=== PATIENT | female | born 1960 | race Two or more races ===

== ENCOUNTER 2020-11-15 11:17 | Outpatient (CLI) | payer OTHER | END 2020-11-15 11:33 | disposition home or self-care (01) | LOC: RAD 11:17 | PROVIDERS: ATTEND Orthopaedic Surgery | DX: M16.12 Unilateral primary osteoarthritis, left hip (principal); Z76.89 Persons encountering health services in other specified circumstances ==

== ENCOUNTER 2021-03-02 16:56 | Emergency (ER) | payer OTHER ==
[~2021-03-02] VITALS: Ht 165.1 cm; Wt 55.8 kg
[2021-03-02] MEDS ORDERED: COZAAR25 MG (17:26)
[2021-03-02] MEDS ORDERED: ZETIA10 MG (17:26)
[2021-03-02] MEDS ORDERED: CRESTOR10 MG (17:26)
[2021-03-02] MEDS ORDERED: IBU800 MG PO (21:32)
[2021-03-02] MEDS ORDERED: NORFLEX100MG PO (21:32)
== END 2021-03-02 21:47 | disposition home or self-care (01) ==
LOC: ER 16:56
DX: M16.0 Bilateral primary osteoarthritis of hip (principal)

== ENCOUNTER → 2021-04-30 | Outpatient (CLI) | payer OTHER ==
[~2021-04-30] MED LIST: COZAAR25 MG; COZAAR50 MG PO; CRESTOR10 MG; IBU800 MG PO; NORFLEX100MG PO; ZETIA10 MG
== END | disposition home or self-care (01) ==
LOC: LAB 07:12
PROVIDERS: ATTEND Orthopaedic Surgery
DX: D64.89 Other specified anemias (principal); E88.89 Other specified metabolic disorders; D68.8 Other specified coagulation defects; N39.0 Urinary tract infection, site not specified; Z22.322 Carrier or suspected carrier of Methicillin resistant Staphylococcus aureus; I10 Essential (primary) hypertension; I49.8 Other specified cardiac arrhythmias; Z76.89 Persons encountering health services in other specified circumstances

== ENCOUNTER → 2021-05-10 06:28 | Outpatient (CLI) | payer OTHER | END | disposition home or self-care (01) | LOC: LAB 06:28 | PROVIDERS: ATTEND Orthopaedic Surgery | DX: E21.2 Other hyperparathyroidism (principal); E55.9 Vitamin D deficiency, unspecified; M85.88 Other specified disorders of bone density and structure, other site; E88.89 Other specified metabolic disorders; M81.8 Other osteoporosis without current pathological fracture; E56.1 Deficiency of vitamin K ==

== ENCOUNTER 2021-05-25 11:10 | Outpatient (CLI) | payer OTHER | END 2021-05-25 11:11 | disposition home or self-care (01) | LOC: LAB 11:10 | PROVIDERS: ATTEND Orthopaedic Surgery | DX: Z22.322 Carrier or suspected carrier of Methicillin resistant Staphylococcus aureus (principal) ==

== ENCOUNTER → 2021-07-13 10:43 | Outpatient (CLI) | payer OTHER ==
[~2021-07-13 10:43] MED LIST changes: +ALENDRONATE SOD70 MG; +CLONAZEPAM1 MG; +DICLOFENAC POTA50 MG; +LOSARTAN-HCTZ1 EACH; +MELOXICAM15 MG; +XARELTO10 M1
== END | disposition home or self-care (01) ==
LOC: LAB 10:43
PROVIDERS: ATTEND Orthopaedic Surgery
DX: Z22.322 Carrier or suspected carrier of Methicillin resistant Staphylococcus aureus (principal)

== ENCOUNTER 2021-07-19 15:54 | Outpatient (CLI) | payer OTHER ==
[~2021-07-19 15:54] MED LIST changes: -ALENDRONATE SOD70 MG; -CLONAZEPAM1 MG; -DICLOFENAC POTA50 MG; -LOSARTAN-HCTZ1 EACH; -MELOXICAM15 MG; -XARELTO10 M1
== END 2021-07-19 23:00 | disposition home or self-care (01) ==
LOC: LAB 15:54
PROVIDERS: ATTEND Orthopaedic Surgery
DX: D64.89 Other specified anemias (principal); E88.89 Other specified metabolic disorders; D68.8 Other specified coagulation defects; N39.0 Urinary tract infection, site not specified

== ENCOUNTER 2021-07-26 10:07 | Inpatient (IN) | payer OTHER ==
[~2021-07-26] VITALS: Ht 154.9 cm; Wt 54.4 kg
[2021-07-31] MEDS ORDERED: LOSARTAN-HCTZ1 EACH (14:26)
[2021-07-31] MEDS ORDERED: MELOXICAM15 MG (14:26)
[2021-07-31] MEDS ORDERED: XARELTO10 M1 (14:26)
[2021-07-31] MEDS ORDERED: ALENDRONATE SOD70 MG (14:26)
[2021-07-31] MEDS ORDERED: CLONAZEPAM1 MG (14:27)
[2021-07-31] MEDS ORDERED: DICLOFENAC POTA50 MG (14:27)
== END 2021-08-02 16:18 | DRG 470 ==
LOC: EDSTATUS 10:45 → ADM 10:45 → SURH 07-31 08:30 → O/R 07-31 09:06 → SURH 07-31 10:45
PROVIDERS: ADMIT Orthopaedic Surgery; ATTEND Orthopaedic Surgery
PROC: 0SRB0JZ Replacement of Left Hip Joint with Synthetic Substitute, Open Approach (ICD-10-PCS; principal; 2021-07-31 08:30)
DX: M16.12 Unilateral primary osteoarthritis, left hip (principal)

== ENCOUNTER 2021-08-16 07:28 | Outpatient (CLI) | payer OTHER ==
[~2021-08-16 07:28] MED LIST changes: +ALENDRONATE SOD70 MG; +CLONAZEPAM1 MG; +DICLOFENAC POTA50 MG; +LOSARTAN-HCTZ1 EACH; +MELOXICAM15 MG; +XARELTO10 M1
== END 2021-08-16 07:29 | disposition home or self-care (01) ==
LOC: NUCLEAR 07:28
PROVIDERS: ATTEND Orthopaedic Surgery
DX: I87.2 Venous insufficiency (chronic) (peripheral) (principal)

== ENCOUNTER 2021-08-27 09:00 | Outpatient (CLI) | payer OTHER | END 2021-08-27 09:15 | disposition home or self-care (01) | LOC: PPH VACUNA 09:00 | PROVIDERS: ATTEND Emergency Medicine Pediatric Emergency Medicine | DX: Z23 Encounter for immunization (principal) ==

== ENCOUNTER → 2021-08-28 10:38 | Outpatient (CLI) | payer OTHER | END | disposition home or self-care (01) | LOC: LAB 10:38 | PROVIDERS: ATTEND Orthopaedic Surgery | DX: M06.4 Inflammatory polyarthropathy (principal) ==

== ENCOUNTER 2021-10-17 16:51 | Outpatient (CLI) | payer OTHER | END 2021-10-18 06:55 | disposition home or self-care (01) | LOC: RAD 16:51 | PROVIDERS: ATTEND Orthopaedic Surgery | DX: M25.561 Pain in right knee (principal); M25.551 Pain in right hip ==

== ENCOUNTER 2021-12-03 10:35 | Outpatient (CLI) | payer OTHER | END 2021-12-03 11:08 | disposition home or self-care (01) | LOC: LAB 10:35 | PROVIDERS: ATTEND Orthopaedic Surgery | DX: E55.9 Vitamin D deficiency, unspecified (principal); M85.9 Disorder of bone density and structure, unspecified ==

== ENCOUNTER 2021-12-31 09:15 | Outpatient (CLI) | payer OTHER | END 2021-12-31 09:31 | disposition home or self-care (01) | LOC: TOM 09:15 | PROVIDERS: ATTEND Internal Medicine Pulmonary Disease | DX: R91.1 Solitary pulmonary nodule (principal); Z72.0 Tobacco use ==

== ENCOUNTER 2022-02-14 10:30 | Outpatient (CLI) | payer OTHER | END 2022-02-14 11:00 | disposition home or self-care (01) | LOC: PPH VACUNA 10:30 | PROVIDERS: ATTEND Emergency Medicine Pediatric Emergency Medicine | DX: Z23 Encounter for immunization (principal) ==

== ENCOUNTER 2022-10-14 13:54 | Outpatient (CLI) | payer OTHER | END 2022-10-14 13:55 | disposition home or self-care (01) | LOC: NUCLEAR 13:54 | PROVIDERS: ATTEND Orthopaedic Surgery | DX: M81.0 Age-related osteoporosis without current pathological fracture (principal) ==

== ENCOUNTER 2024-04-06 11:16 | Outpatient (CLI) | payer OTHER | END 2024-04-06 13:26 | disposition home or self-care (01) | LOC: MAMO-SONO 11:16 | DX: I70.0 Atherosclerosis of aorta (principal); Z12.31 Encounter for screening mammogram for malignant neoplasm of breast ==

== ENCOUNTER 2024-04-15 10:32 | Outpatient (CLI) | payer OTHER | END 2024-04-15 10:41 | disposition home or self-care (01) | LOC: SONOGRAMA 10:32 | DX: N64.9 Disorder of breast, unspecified (principal) ==